=== PATIENT | female | born 1990 | race American Indian/Alaskan Native ===

== ENCOUNTER 2017-03-13 10:09 | Emergency (ER) | payer SELFPAY ==
[2017-03-13 11:25] LABS: Basophils % (Auto) 0.5 % (0.0-1.8); Eosinophils % (Auto) 0.5 % (0.0-4.3); Hematocrit 45.3 % (30.3-42.9); Hemoglobin 15.5 gm/dl (10.1-14.3); Mean Corpuscular HGB Conc 34 % (30-34); Mean Corpuscular Hemoglobin 28 pg (28-32); Mean Corpuscular Volume 82 fl (79-97); Platelet Count 282 K/mm3 (140-440); Red Blood Count 5.51 M/mm3 (3.65-5.03); Red Cell Distribution Width 17.5 % (13.2-15.2); White Blood Count 10.3 K/mm3 (4.5-11.0)
[2017-03-13 11:31] LABS: Alanine Aminotransferase 54 units/L (7-56); Albumin 4.6 g/dL (3.9-5); Albumin/Globulin Ratio 1.2 %; Alkaline Phosphatase 72 units/L (35-129); Anion Gap 26 mmol/L; BUN/Creatinine Ratio 13.33; Blood Urea Nitrogen 16 mg/dL (7-17); Calcium 10.3 mg/dL (8.4-10.2); Carbon Dioxide 23 mmol/L (22-30); Chloride 83.8 mmol/L (98-107); Glucose 108 mg/dL (65-100); Lipase 45 units/L (13-60); Sodium 130 mmol/L (137-145); Total Protein 8.6 g/dL (6.3-8.2)
[2017-03-13 12:09] LABS: Potassium 2.5 mmol/L (3.6-5.0)
[2017-03-13] MEDS ORDERED: K-DUR PO ONE ×2 (12:15→17:01)
[2017-03-13] MEDS ORDERED: NACL 0.9% 1000 ML 1,000 ML IV ONE ×2 (12:21→12:22)
[2017-03-13] MEDS ORDERED: ZOFRAN IV ONE (12:21)
--- NOTE | 2017-03-13 12:26 | Emergency Department Report ---
HPI - General Chief Complaint: Abdominal Pain Time Seen by Provider: 03/13/17 12:14 - HPI HPI: Room 26 The patient is a 26-year-old female presenting with chief complaint of abdominal pain nausea vomiting. The patient states she is for approximately one month has had diffuse abdominal pain described as constant and cramping in nature. Approximately 2-3 weeks ago the patient went to [facility] emergency Department where she felt that she was . The patient states she had an ultrasound performed at that hospital. The patient states for the past week she has exhibited nausea and vomiting. Patient denies diarrhea but admits to constipation. Patient admits to a subjective fever. Patient denies dysuria, hematuria or vaginal bleeding. 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: Abdomen Duration: One month Quality: Cramping Severity: Moderate Modifying factors: [see above] Context: [see above] Mode of transportation: unKnown ED Past Medical Hx - Past Medical History Previous Medical History?: Yes Additional medical history: Vaginal dleivery 06-21-2015 - Surgical History Past Surgical History?: No - Family History Family history: no significant - Social History Smoking Status: Former Smoker (none 2 months) Substance Use Type: None (denies illicit drug use) ED Review of Systems ROS: Stated complaint: , ABDOMINAL PAIN,VOMITING Other details as noted in HPI Comment: All other systems reviewed and negative Constitutional: fever (subjective) Eyes: denies: eye pain, eye discharge, vision change ENT: denies: ear pain, throat pain Respiratory: denies: cough, shortness of breath, wheezing Cardiovascular: denies: chest pain, palpitations Endocrine: no symptoms reported Gastrointestinal: abdominal pain, nausea, vomiting, constipation. denies: diarrhea Genitourinary: denies: urgency, dysuria, discharge Musculoskeletal: denies: back pain, joint swelling, arthralgia Skin: denies: rash, lesions Neurological: denies: headache, weakness, paresthesias Psychiatric: denies: anxiety, depression Hematological/Lymphatic: denies: easy bleeding, easy bruising Physical Exam - Physical Exam Vital Signs: Vital Signs 03/13/17 10:35 Temperature 97.6 F Pulse Rate 135 H Respiratory 24 Rate Blood Pressure 132/67 O2 Sat by Pulse 100 Oximetry Physical Exam: GENERAL: The patient is well-developed well-nourished female lying on stretcher not appearing to be in acute distress. [] HEENT: Normocephalic. Atraumatic. Extraocular motions are intact. NECK: Supple. Trachea midline CHEST/LUNGS: Clear to auscultation. There is no respiratory distress noted. HEART/CARDIOVASCULAR: Regular. There is tachycardia. There is no gallop rub or murmur. ABDOMEN: Abdomen is soft, with diffuse discomfort to palpation. There is no rebound or guarding. Patient has normal bowel sounds. SKIN: There is no rash. There is no edema. There is no diaphoresis. NEURO: The patient is awake, alert, and oriented. The patient is cooperative. The patient has normal speech MUSCULOSKELETAL: There is no evidence of acute injury. ED Course Vital Signs 03/13/17 10:35 Temperature 97.6 F Pulse Rate 135 H Respiratory 24 Rate Blood Pressure 132/67 O2 Sat by Pulse 100 Oximetry - Consultations Consultation #1: 03/13/17 15:34 PLAYER DEVELOPMENT EXECUTIVE paged 03/13/17 15:[address] Carlos Tam. He states he will follow in consultation and to have hospitalist admit ED Medical Decision Making - Lab Data Result diagrams: 03/13/17 10:56 03/13/17 10:56 Laboratory Tests 03/13/17 03/13/17 03/13/17 10:56 10:56 12:24 WBC 10.3 RBC 5.51 H Hgb 15.5 H Hct 45.3 H MCV 82 MCH 28 MCHC 34 RDW 17.5 H Plt Count 282 Lymph % (Auto) 26.7 Wright % (Auto) 11.7 H Eos % (Auto) 0.5 Baso % (Auto) 0.5 Lymph # 2.8 Wright # 1.2 H Eos # 0.1 Baso # 0.0 Seg Neutrophils % 60.6 Seg Neutrophils # 6.3 Sodium 130 L Potassium 2.5 L* Chloride 83.8 L Carbon Dioxide 23 Anion Gap 26 BUN 16 Creatinine 1.2 Estimated GFR > 60 BUN/Creatinine Ratio 13.33 Glucose 108 H Calcium 10.3 H Total Bilirubin 0.60 AST 34 ALT 54 Alkaline Phosphatase 72 Total Protein 8.6 H Albumin 4.6 Albumin/Globulin Ratio 1.2 Lipase 45 HCG, Quant [id number] H - Radiology Data Radiology results: report reviewed (pelvic ultrasound), image reviewed (pelvic ultrasound) Pelvic ultrasound (read by radiologist) 6-single live intrauterine gestation at approximately 9 weeks 2 days. EDC by ultrasound 10/14/2017. - Differential Diagnosis hyperemesis gravidarum, UTI, ectopic Critical care attestation.: If time is entered above; I have spent that time in minutes in the direct care of this critically ill patient, excluding procedure time. ED Disposition Clinical Impression: Hyperemesis gravidarum, Hypokalemia Disposition: OP ADMIT IP TO THIS HOSP Is pt being admited?: Yes Does the pt Need Aspirin: No Condition: Fair Instructions: Abdominal Pain (ED) Referrals: PRIMARY CARE, [Primary Care Provider] - 3-5 Days Time of Disposition: 15:49 (hospitalist paged)
[2017-03-13] MEDS: KCL 10MEQ/100ML 10 MEQ/100 ML BAG IV SCH ×4 (12:41→18:44)
[2017-03-13] MEDS ORDERED: TYLENOL PO ONE (14:38)
[2017-03-13] MEDS ORDERED: REGLAN IV ONE (14:38)
--- NOTE | 2017-03-13 15:17 | Ultrasound Report ---
FINAL REPORT PROCEDURE: US OB \T\lt; = 14 WEEKS FETUS TECHNIQUE: Real-time transabdominal and transvaginal sonography of the uterus, placenta, amniotic fluid, adnexa, and fetus was performed with image documentation. Measurements were obtained to determine age/size. M-mode Doppler was used to document heartbeat. CPT 94386 and 84312 HISTORY: abdominal pain COMPARISON: No prior studies are available for comparison. FINDINGS: ADDITIONAL GESTATION: None. Uterus measures 9 cm in length. Single live intrauterine is seen with a crown-rump length of 2.5 cm corresponding to 9 weeks 2 days gestational age. Estimated date of delivery is October 14, 2017. heart rate is 178 beats per minute. Right ovary measures 2.1 x 1.1 x 2.5 cm. Left ovary measures 2.5 x 1.6 x 2.3 cm. No adnexal masses or free pelvic fluid are seen. IMPRESSION: 1. Single live intrauterine gestation at approximately 9 weeks 2 days. 2. EDC by US October 14, 2017 3. Complete anatomic survey at 18-20 weeks suggested.
--- NOTE | 2017-03-13 15:17 | Ultrasound Report ---
FINAL REPORT PROCEDURE: US OB TRANSVAGINAL TECHNIQUE: Real-time transabdominal and transvaginal sonography of the uterus, placenta, amniotic fluid, adnexa, and fetus was performed with image documentation. Measurements were obtained to determine age/size. M-mode Doppler was used to document heartbeat. CPT 73730 and 14724 HISTORY: abdominal pain COMPARISON: No prior studies are available for comparison. FINDINGS: ADDITIONAL GESTATION: None. Uterus measures 9 cm in length. Single live intrauterine is seen with a crown-rump length of 2.5 cm corresponding to 9 weeks 2 days gestational age. Estimated date of delivery is October 14, 2017. heart rate is 178 beats per minute. Right ovary measures 2.1 x 1.1 x 2.5 cm. Left ovary measures 2.5 x 1.6 x 2.3 cm. No adnexal masses or free pelvic fluid are seen. IMPRESSION: 1. Single live intrauterine gestation at approximately 9 weeks 2 days. 2. EDC by US October 14, 2017. 3. Complete anatomic survey at 18-20 weeks suggested.
[2017-03-13] MEDS ORDERED: POTASSIUM CHLORIDE FEEDTUBE ONE (16:06)
[2017-03-13] MEDS ORDERED: NACL 0.45% 500 ML IV SCH (17:00)
[2017-03-13 17:18] LABS: Bilirubin,Urine NEG (Negative); Blood,Urine NEG (Negative); Ketones,Urine 80 mg/dL (Negative); Leukocyte Esterase,Urine NEG (Negative); Mucus,Urine 3+ /HPF; Nitrite,Urine NEG (Negative); Urobilinogen,Urine < 2.0 mg/dL (<2.0)
--- NOTE | 2017-03-13 17:41 | History and Physical Report ---
History of Present Illness Chief complaint: Im nauseated, and jj been throwing up History of present illness: 26 YO Female with NO PMH at 9weeks Gestation presents to ED for evaluation. Pt states that she has experienced multiple of episodes of nausea and vomiting over the past month. Pt denies fever, chills,CP, Palpitatons, Syncope, vaginal bleeding, BRBPR, hematuria, flank pain, trauma, productive cough, or recent ill contacts. Pt seen and evaluated in ED and found to have hyperemesis gravidarum, as well as hypokalemia. Pt treated with potassium and IVF resuscitation. Pt medically optimized and back to usual state of health. Past History Past Medical History: No medical history, other (reviewed) Past Surgical History: No surgical history, Other (reviewed) Social history: single. denies: smoking, alcohol abuse, prescription drug abuse , IV drug use Family history: diabetes, hypertension Medications and Allergies Allergies Allergy/AdvReac Type Severity Reaction Status Date / Time No Known Allergies Allergy Unverified 03/13/17 10:35 Home Medications Medication Instructions Recorded Confirmed Last Taken Type Ondansetron [Zofran Odt] 4 mg PO BID PRN #20 tab.rapdis 03/13/17 Unknown Rx Active Meds: Active Medications Sodium Chloride (Nacl 0.45%) 500 mls @ 250 mls/hr IV DIRECT MILES Review of Systems Constitutional: weight gain, no weight loss, no fever, no chills, no sweats Ears, nose, mouth and throat: no ear pain, no ear discharge, no tinnitis, no decreased hearing, no nose pain, no nasal congestion, no nasal discharge, no sinus pressure, no sinus pain Breasts: no change in shape, no swelling, no mass Cardiovascular: no chest pain, no orthopnea, no palpitations, no rapid/ irregular heart beat, no edema, no syncope, no lightheadedness Respiratory: no cough, no cough with sputum, no excessive sputum, no hemoptysis , no shortness of breath, no dyspnea on exertion Gastrointestinal: nausea, vomiting, no diarrhea, no constipation, no change in bowel habits, no hematemesis, no coffee ground emesis, no BRBPR, no melena, no hematochezia, no loss of appetite, no early satiety, no heartburn, no indigestion, no belching Genitourinary Female: no pelvic pain, no flank pain, no menorrhagia, no dysuria , no urinary frequency, no urgency, no stress incontinence Rectal: no pain, no incontinence, no bleeding Musculoskeletal: no neck stiffness, no neck pain, no shooting arm pain, no arm numbness/tingling, no low back pain, no shooting leg pain, no leg numbness/ tingling, no redness of joints Integumentary: no rash, no pruritis, no redness, no sores, no wounds, no jaundice, no boils, no blisters Neurological: no head injury, no transient paralysis, no paralysis, no weakness , no parathesias, no numbness, no tingling, no seizures, no syncope, no tremors Psychiatric: no anxiety, no memory loss, no change in sleep habits, no sleep disturbances, no insomnia, no hypersomnia Endocrine: no cold intolerance, no heat intolerance, no polyphagia, no excessive thirst Hematologic/Lymphatic: no easy bruising, no easy bleeding Allergic/Immunologic: no urticaria, no allergic rhinitis, no wheezing Exam - Constitutional Vitals: Temp Pulse Resp BP Pulse Ox 98.5 F 104 H 16 140/95 100 03/13/17 15:00 03/13/17 15:00 03/13/17 15:00 03/13/17 15:00 03/13/17 15:00 General appearance: Present: no acute distress, well-nourished - EENT Eyes: Present: PERRL ENT: hearing intact, clear oral mucosa - Neck Neck: Present: supple, normal ROM - Respiratory Respiratory effort: normal Respiratory: bilateral: CTA - Cardiovascular Heart Sounds: Present: S1 & S2. Absent: rub, click - Extremities Extremities: pulses symmetrical, No edema Peripheral Pulses: within normal limits - Abdominal General gastrointestinal: Present: soft, non-tender, non-distended, normal bowel sounds Female genitourinary: Present: normal - Integumentary Integumentary: Present: clear, warm, dry - Musculoskeletal Musculoskeletal: gait normal, strength equal bilaterally - Psychiatric Psychiatric: appropriate mood/affect, intact judgment & insight - Neurologic Neurologic: CNII-XII intact, moves all extremities Results - Labs CBC & Chem 7: 03/13/17 10:56 03/13/17 10:56 Labs: Abnormal lab results 09/03/13/17 03/13/17 Range/Units 10:56 10:56 12:24 RBC 5.51 H (3.65-5.03) M/mm3 Hgb 15.5 H (10.1-14.3) gm/dl Hct 45.3 H (30.3-42.9) % RDW 17.5 H (13.2-15.2) % Whitman % (Auto) 11.7 H (0.0-7.3) % Whitman # 1.2 H (0.0-0.8) K/mm3 Sodium 130 L (137-145) mmol/L Potassium 2.5 L* (3.6-5.0) mmol/L Chloride 83.8 L (98-107) mmol/L Glucose 108 H (65-100) mg/dL Calcium 10.3 H (8.4-10.2) mg/dL Total Protein 8.6 H (6.3-8.2) g/dL HCG, Quant [id number] H (0-4) mIU/mL Urine WBC (Auto) (0.0-6.0) /HPF 03/13/17 Range/Units 17:03 RBC (3.65-5.03) M/mm3 Hgb (10.1-14.3) gm/dl Hct (30.3-42.9) % RDW (13.2-15.2) % Whitman % (Auto) (0.0-7.3) % Whitman # (0.0-0.8) K/mm3 Sodium (137-145) mmol/L Potassium (3.6-5.0) mmol/L Chloride (98-107) mmol/L Glucose (65-100) mg/dL Calcium (8.4-10.2) mg/dL Total Protein (6.3-8.2) g/dL HCG, Quant (0-4) mIU/mL Urine WBC (Auto) 11.0 H (0.0-6.0) /HPF Assessment and Plan - Patient Problems (1) Hyperemesis gravidarum Status: Acute Plan to address problem: IVF resuscitation therapy, antiemetic therapy, outpatient OB f/u 3 days, (2) Hypokalemia Status: Acute Plan to address problem: repleted
[2017-03-13 21:13] VITALS: BP 132/88
--- NOTE | 2017-03-14 11:32 | Consultation ---
History of Present Illness Consult date: 03/14/17 Reason for consult: early problem Medications and Allergies Allergies Allergy/AdvReac Type Severity Reaction Status Date / Time No Known Allergies Allergy Unverified 03/13/17 10:35 Home Medications Medication Instructions Recorded Confirmed Last Taken Type Ondansetron [Zofran Odt] 4 mg PO BID PRN #20 tab.rapdis 03/13/17 Unknown Rx - Vital Signs Vital signs: Vital Signs Temp Pulse Resp BP Pulse Ox 97.6 F 135 H 24 132/67 100 03/13/17 10:35 03/13/17 10:35 03/13/17 10:35 03/13/17 10:35 03/13/17 10:35 Temp Pulse Resp BP Pulse Ox 98 F 99 H 18 132/88 100 03/13/17 21:12 03/13/17 21:12 03/13/17 21:12 03/13/17 21:12 03/13/17 21:12 Results Result Diagrams: 03/13/17 10:56 03/13/17 10:56 Abnormal lab results 03/13/17 03/13/17 03/13/17 Range/Units 10:56 12:24 17:03 Sodium 130 L (137-145) mmol/L Potassium 2.5 L* (3.6-5.0) mmol/L Chloride 83.8 L (98-107) mmol/L Glucose 108 H (65-100) mg/dL Calcium 10.3 H (8.4-10.2) mg/dL Total Protein 8.6 H (6.3-8.2) g/dL HCG, Quant [id number] H (0-4) mIU/mL Urine WBC (Auto) 11.0 H (0.0-6.0) /HPF All other labs normal.
== END 2017-03-13 21:14 | disposition admitted as inpatient to this hospital (09) ==
LOC: ED 10:09
DX: O21.0 Mild hyperemesis gravidarum (principal); O26.891 Other specified pregnancy related conditions, first trimester; E87.6 Hypokalemia; Z3A.09 9 weeks gestation of pregnancy; Z87.891 Personal history of nicotine dependence
CPT/HCPCS: 36415; 76801; 76817; 80053; 81001; 83690; 84702; 85025; 96361; 96365; 96375; 99285; J2405; J2765; J3480; J7030